=== PATIENT | female | born 1945 | race African-American/Black ===

== ENCOUNTER 2018-10-07 09:46 | Observation (INO) ==
[2018-10-07 10:46] LABS: Basophils % 0.8 % (0.0-0.8); Eosinophils # 0.1 10*3/uL (0.0-0.87); Eosinophils % 1.4 % (0.00-10.9); Hematocrit 31.9 VOL% (35.7-47.0); Immature Granulocytes % 0.3 %; Immature Granulocytes Absolute 0.01 #; Lymphocytes # 1.4 10*3/uL (1.4-4.0); Lymphocytes % 40.4 % (21.3-54.2); Mean Corpuscular HGB Conc 31.3 GM/DL (32-36); Mean Corpuscular Volume 92.5 FL (87-102); Mean Platelet Volume 9.7 FL (9.6-12.0); Monocytes % 8.7 % (1.7-12.7); Neutrophils % 48.4 % (38.7-73.9); Platelet Count 158 T/CUMM (130-400); Red Blood Count 3.45 MC/CUMM (3.8-5.5); Red Cell Distribution Width 12.7 % (9.3-17.3); White Blood Count 3.6 T/CUMM (4-12)
[2018-10-07 10:56] LABS: INR 0.9; PT Patient Result 10.2 SECS; Partial Thromboplastin Time 27.5 SECS (0-40)
[2018-10-07 11:04] LABS: Alanine Aminotransferase 15 U/L (13-56); Albumin 3.4 G/DL (3.4-5.0); Alkaline Phosphatase 51 U/L (45-117); Aspartate Amino Transferase 14 U/L (0-37); Bilirubin,Total < 0.39 MG/DL (0.2-1.0); Blood Urea Nitrogen 15 MG/DL (7-18); Calcium 9.2 MG/DL (8.5-10.1); Glucose 100 MG/DL (74-106); Osmolality,Calculated 279.4 MOS/KG (273-304); Total Protein 6.6 G/DL (6.4-8.3); Troponin I < 0.015 NG/ML (0.00-0.045)
[2018-10-07] MEDS ORDERED: guaiFENesin/DM ER 600-30 MG TABLET PO PRN (12:43)
[2018-10-07] MEDS ORDERED: NICOTINE 21 MG/24 HR PATCH TRANSDERM PRN (12:43)
[2018-10-07] MEDS ORDERED: ACETAMINOPHEN 325 MG TABLET PO PRN (12:43)
[2018-10-07] MEDS ORDERED: MORPHINE 4 MG/1 ML VIAL IV PRN (12:43)
[2018-10-07] MEDS ORDERED: PROMETHAZINE 25 MG TABLET PO PRN (12:43)
[2018-10-07] MEDS ORDERED: ZALEPLON 5 MG CAPSULE PO PRN (12:43)
[2018-10-07 14:32] LABS: % Iron Saturation 20.6 % (18-50)
[2018-10-07] MEDS: SODIUM CHLORIDE 0.9% 1,000 ML IV SCH (15:19)
[2018-10-07] MEDS: ENOXAPARIN 40 MG/0.4 ML SYRINGE SUBCUT SCH (15:21)
[2018-10-07] MEDS: METAXALONE 800 MG TABLET PO SCH ×2 (15:22→21:32)
[2018-10-07] MEDS: PANTOPRAZOLE 40 MG TABLET PO SCH (15:22)
[2018-10-07] MEDS: CYPROHEPTADINE 4 MG TABLET PO SCH (21:32)
[2018-10-07] MEDS: SIMVASTATIN 20 MG TABLET PO SCH (21:33)
[2018-10-07] MEDS: CARVEDILOL 25 MG TABLET PO SCH (21:34)
[2018-10-08] MEDS: SODIUM CHLORIDE 0.9% 1,000 ML IV SCH ×3 (03:16→16:03)
[2018-10-08 05:20] LABS: Basophils % 0.5 % (0.0-0.8); Eosinophils # 0.1 10*3/uL (0.0-0.87); Eosinophils % 1.3 % (0.00-10.9); Hematocrit 29.4 VOL% (35.7-47.0); Hemoglobin 9.2 GM/DL (12.0-16.0); Lymphocytes # 1.6 10*3/uL (1.4-4.0); Lymphocytes % 42.4 % (21.3-54.2); Mean Corpuscular HGB Conc 31.3 GM/DL (32-36); Mean Corpuscular Volume 91.3 FL (87-102); Mean Platelet Volume 10.3 FL (9.6-12.0); Monocytes % 6.8 % (1.7-12.7); Platelet Count 154 T/CUMM (130-400); Red Blood Count 3.22 MC/CUMM (3.8-5.5); Red Cell Distribution Width 12.6 % (9.3-17.3); White Blood Count 3.8 T/CUMM (4-12)
[2018-10-08 05:45] LABS: Albumin 2.9 G/DL (3.4-5.0); Bilirubin,Total 0.8 MG/DL (0.2-1.0); Calcium 8.5 MG/DL (8.5-10.1); Risk Ratio 2.06; Total Protein 5.5 G/DL (6.4-8.3); VLDL CHOLESTEROL 14.6 MG/DL
[2018-10-08 06:54] LABS: Apearance,Urine CLEAR (Clear); Bacteria,Urine Occasional /HPF (Few); Bilirubin,Urine Negative (Negative); Blood, Urine Moderate mg/dL (Negative); Glucose,Urine (UA) Negative (Negative); Ketones,Urine Negative (Negative); Mucus,Urine Occasional /LPF (Occasional); Nitrite,Urine Negative (Negative); Protein,Urine Negative; RBC,Urine 19 /HPF (0-4); Squamous Epithelial Cell,Urine Occasional /HPF (0-10); Urine Color Yellow (Yellow); Urine Specific Gravity 1.017 (1.001-1.035); Urine Urobilinogen < 2.0 EU/DL (0.2-1.0); WBC,Urine 5 /HPF (0-6)
[2018-10-08] MEDS: LOSARTAN 25 MG TABLET PO SCH (08:43)
[2018-10-08] MEDS: CYPROHEPTADINE 4 MG TABLET PO SCH ×2 (08:43→21:05)
[2018-10-08] MEDS: ASPIRIN EC 81 MG TABLET PO SCH (08:43)
[2018-10-08] MEDS: METAXALONE 800 MG TABLET PO SCH ×3 (08:43→21:05)
[2018-10-08] MEDS: CARVEDILOL 25 MG TABLET PO SCH ×2 (08:44→21:05)
[2018-10-08] MEDS: ALLOPURINOL 100 MG TABLET PO SCH (08:44)
[2018-10-08] MEDS: PANTOPRAZOLE 40 MG TABLET PO SCH (08:44)
[2018-10-08] MEDS ORDERED: FUROSEMIDE 40 MG TABLET PO SCH (09:00)
[2018-10-08] MEDS ORDERED: POTASSIUM CHLORIDE 20 MEQ TABLET PO SCH (09:00)
[2018-10-08] MEDS: ENOXAPARIN 40 MG/0.4 ML SYRINGE SUBCUT SCH (12:24)
[2018-10-08] MEDS: SIMVASTATIN 20 MG TABLET PO SCH (21:05)
[2018-10-09] MEDS: SODIUM CHLORIDE 0.9% 1,000 ML IV SCH ×2 (02:50→14:31)
[2018-10-09 05:05] LABS: Basophils % 0.9 % (0.0-0.8); Eosinophils # 0.1 10*3/uL (0.0-0.87); Eosinophils % 2.5 % (0.00-10.9); Hematocrit 28.2 VOL% (35.7-47.0); Hemoglobin 8.8 GM/DL (12.0-16.0); Immature Granulocytes % 0.3 %; Immature Granulocytes Absolute 0.01 #; Lymphocytes # 1.6 10*3/uL (1.4-4.0); Lymphocytes % 49.1 % (21.3-54.2); Mean Corpuscular HGB Conc 31.2 GM/DL (32-36); Mean Corpuscular Volume 93.4 FL (87-102); Mean Platelet Volume 9.9 FL (9.6-12.0); Monocytes % 7.7 % (1.7-12.7); Neutrophils % 39.5 % (38.7-73.9); Platelet Count 150 T/CUMM (130-400); Red Blood Count 3.02 MC/CUMM (3.8-5.5); Red Cell Distribution Width 12.8 % (9.3-17.3); White Blood Count 3.3 T/CUMM (4-12)
[2018-10-09 05:17] LABS: Calcium 8.1 MG/DL (8.5-10.1); Osmolality,Calculated 289.6 MOS/KG (273-304)
[2018-10-09 05:35] LABS: Hypochromasia 1+; Microcytosis 1+; Platelet Estimate Normal
[2018-10-09 05:36] LABS: Ovalocytes 1+
[2018-10-09] MEDS: ALLOPURINOL 100 MG TABLET PO SCH (08:57)
[2018-10-09] MEDS: CARVEDILOL 25 MG TABLET PO SCH (08:57)
[2018-10-09] MEDS: METAXALONE 800 MG TABLET PO SCH ×2 (08:57→14:30)
[2018-10-09] MEDS: PANTOPRAZOLE 40 MG TABLET PO SCH (08:57)
[2018-10-09] MEDS: ASPIRIN EC 81 MG TABLET PO SCH (08:57)
[2018-10-09] MEDS: CYPROHEPTADINE 4 MG TABLET PO SCH (08:57)
[2018-10-09] MEDS: LOSARTAN 25 MG TABLET PO SCH (09:02)
[2018-10-09] MEDS: ENOXAPARIN 40 MG/0.4 ML SYRINGE SUBCUT SCH (12:47)
[2018-10-09 19:25] VITALS: BP 127/70
== END 2018-10-09 18:45 | disposition home or self-care (01) ==
LOC: N.EDINP 09:46 → N.ED 09:46 → SUATTDRO 12:46 → N.5E 13:25
PROVIDERS: ADMIT Nurse Practitioner Family; ATTEND Internal Medicine Nephrology